=== PATIENT | male | born 1940 | race Caucasian/White ===

== ENCOUNTER 2018-11-03 06:52 | Inpatient (IN) | payer MEDICARE, MEDICAID ==
[~2018-11-03] VITALS: Ht 172.7 cm; Wt 55.9 kg
[~2018-11-03 06:52] MED LIST: BUDE10.2 INH; DOCU-28 PO; FLO0.4C PO; FLUO20CA39 PO; HYDR-4353 PO; IPRA4AER IH; OMEP20CA11 PO; SENN-25 PO; SIMV-42 PO
[2018-11-03 08:24] LABS: BASOPHILS % (AUTO) 0.2 % (0-1); EOSINOPHILS % (AUTO) 0 % (0-6); HEMATOCRIT 43.1 % (42.0-52.0); HEMOGLOBIN 14.3 g/dl (14.0-17.9); LYMPHOCYTES # (AUTO) 1.1 X10'3 (1.1-4.8); LYMPHOCYTES % (AUTO) 9.4 % (21-51); MEAN CORPUSCULAR HEMOGLOBIN 33.4 PG (27.0-31.0); MEAN CORPUSCULAR HGB CONC 33.2 g/dL (33.0-36.5); MEAN CORPUSCULAR VOLUME 100.4 FL (78-98); MEAN PLATELET VOLUME 9.5 FL (7.4-10.4); MONOCYTES # (AUTO) 0.9 X10'3 (0-0.9); MONOCYTES % (AUTO) 8.1 % (2-12); NEUTROPHILS # (AUTO) 9.6 X10'3 (1.8-7.7); NEUTROPHILS % (AUTO) 82.3 % (42-75); PLATELET COUNT 123 X10'3 (140-440); RED CELL DISTRIBUTION WIDTH 13.6 % (11.5-14.5); WHITE BLOOD COUNT 11.7 X10'3 (4.5-11.0)
[2018-11-03 09:15] LABS: ALBUMIN 3.7 G/DL (3.4-5.0); ALBUMIN/GLOBULIN RATIO 1.3 (1.1-1.5); ANION GAP 9 (8-16); ASPARTATE AMINO TRANSFERASE 542 U/L (10-37); BILIRUBIN,TOTAL 2.3 MG/DL (0.1-1.0); BLOOD UREA NITROGEN 25 MG/DL (7-18); BUN/CREATININE RATIO 30.1 (5.4-32.0); CALCIUM 9.2 MG/DL (8.5-10.1); CHLORIDE 104 MMOL/L (99-107); CREATININE 0.83 MG/DL (0.60-1.10); ETHANOL < 0.010 GM/DL (0.0-0.010); GLUCOSE 106 MG/DL (70-104); POTASSIUM 4.1 MMOL/L (3.5-5.1); SODIUM 141 MMOL/L (135-145); TOTAL CARBON DIOXIDE 28.2 MMOL/L (24-32); TOTAL PROTEIN 6.5 G/DL (6.4-8.2); eGFR 90 ML/MIN
[2018-11-03 09:26] LABS: CLARITY,URINE CLEAR (Clear); COLOR,URINE YELLOW (Yellow); GLUCOSE, URINE NEGATIVE (Neg); KETONES,URINE >=80 mg/dl (Neg); LEUKOCYTE ESTERASE ,URINE NEGATIVE (Neg); NITRITES, URINE NEGATIVE (Neg); OCCULT BLOOD,URINE TRACE-INTACT (Neg); PH,URINE 6.5 (4.8-8.0); PROTEIN,URINE TRACE mg/dl (Neg)
[2018-11-03 09:27] LABS: ALANINE AMINOTRANSFERASE 3321 U/L (12-78)
[2018-11-03 09:30] LABS: ACETAMINOPHEN < 2.0 UG/ML (10-30)
[2018-11-03 09:31] LABS: URINE AMPHETAMINE SCREEN NEGATIVE (Neg); URINE BARBITUATE SCREEN NEGATIVE (Neg); URINE BENZODIAZEPINES SCREEN NEGATIVE (Neg); URINE CANNABINOID SCREEN NEGATIVE (Neg); URINE COCAINE SCREEN NEGATIVE (Neg); URINE METHADONE SCREEN NEGATIVE (Neg); URINE OPIATE SCREEN POSITIVE (Neg); URINE PHENCYCLIDINE SCREEN NEGATIVE (Neg)
[2018-11-03 09:32] LABS: UA COLLECTION TYPE CLN CATCH MIDSTREAM
[2018-11-03 09:35] LABS: BACTERIA,URINE NONE SEEN /HPF (Neg); MUCUS STRANDS NONE SEEN /LPF (Neg); RBC,URINE NONE SEEN /HPF (0-2); SQUAMOUS EPITHELIAL CELL,UR FEW /LPF (FEW); WBC,URINE NONE SEEN /HPF (0-4)
--- NOTE | 2018-11-03 10:09 | NUR ---
PACKET FAXED TO [facility]
--- NOTE | 2018-11-03 10:27 | NUR ---
pt was brought over by shanna tejada, he was placed in bed 24 with warm blanket and fresh water
[2018-11-03 10:47] LABS: ALKALINE PHOSPHATASE 99 IU/L (46-116)
--- NOTE | 2018-11-03 12:26 | NUR ---
CONTACTED POISON CONTROL REGARDING INGESTION OF 60 HYDROCODONE LAST WEDNESDAY. SPOKE WITH LORENZO, THE RECOMENDATION IS TO START PT ON ACETYLCYSTEINE IV TREATMENT X1 DAY DUE TO PT ELEVATED LIVER ENZYMES AT THE STANDARD DOSING AND TO OBTAIN BASELINE PT INR. AFTER 3RD DOSE RECHECK PT CHEM PANEL AND PT INR.
[2018-11-03] MEDS ORDERED: WATER IV ONE ×3 (12:40→18:00)
[2018-11-03] MEDS ORDERED: DEXTROSE 5% IV ONE ×3 (12:40→18:00)
[2018-11-03] MEDS ORDERED: ACETYLCYSTEINE IV ONE ×3 (12:40→18:00)
--- NOTE | 2018-11-03 13:00 | NUR ---
PT IS IN BED WITH EX AT BEDSIDE. PT IS BEING GOOD
--- NOTE | 2018-11-03 13:41 | NUR ---
PTS EX STILL AT BEDSIDE AND PT FINISHED EATING. PT IS BEING GOOD
[2018-11-03] MEDS ORDERED: sennosides 8.6mg tablet PO PRN (13:50)
[2018-11-03] MEDS ORDERED: docusate sod 100mg capsule PO PRN (13:50)
[2018-11-03] MEDS ORDERED: diphenhydrAMINE 25mg capsule PO PRN (13:55)
[2018-11-03] MEDS ORDERED: potassium CL 10mEq/100ml bag 100 ML IV PRN ×2 (13:55)
[2018-11-03] MEDS ORDERED: magnesium 2GM in 50ml NS 50 ML IV PRN (13:55)
[2018-11-03] MEDS ORDERED: magnesium 4gm in 100ml NS 100 ML IV PRN (13:55)
[2018-11-03] MEDS ORDERED: acetaminophen 325mg tablet PO PRN (13:55)
[2018-11-03] MEDS ORDERED: magnesium hydroxide 30ml (MOM) UD suspension PO PRN (13:55)
[2018-11-03] MEDS: K and/or MAG REPLACEMENT MC SCH (13:55)
[2018-11-03] MEDS ORDERED: ondansetron/PF 4mg/2ml inj IV PRN (13:55)
[2018-11-03] MEDS ORDERED: mag hydrox/Alum hydrox/simeth 30ml oral suspension PO PRN (13:55)
[2018-11-03] MEDS ORDERED: ipratropium 0.5 MG/2.5ML nebule IH PRN (14:05)
[2018-11-03 14:30] LABS: HEMOGLOBIN A1C 5.6 % (4.5-6.2)
[2018-11-03] MEDS: normal saline 1000ml 1,000 ML IV SCH ×2 (15:00→23:23)
[2018-11-03] MEDS: albuterol 2.5 MG/3 ML nebule NEB SCH ×2 (15:00→19:57)
--- NOTE | 2018-11-03 17:15 | NUR ---
Discharge Note Patient's liver enzymes were elevated upon admission. Poison control called and recommendations made to Dr. Bethea. IV started and [place]ao antidote IV added to normal saline line. Report given to Dmitriy BENITEZ on PCU. Dmitriy RN came down to Overflow to transport patient back to PCU via wheelchair. IV's patent and running. IV site without redness or swelling.
--- NOTE | 2018-11-03 17:27 | NUR ---
Patient in room 3021, I have received report from [place] from the ER and had the opportunity to ask questions and assume patient care.
[2018-11-03 17:30] VITALS: BP 125/64
--- NOTE | 2018-11-03 18:00 | NUR ---
I have reviewed Suzanne BENITEZ (orientee) charting and I agree with it.
--- NOTE | 2018-11-03 18:25 | NUR ---
Problems reprioritized. Patient report given, questions answered & plan of care reviewed with Roberto BENITEZ.
--- NOTE | 2018-11-03 18:44 | NUR ---
Patient in room PCU 3021. I have received report from EMMANUEL Izaguirre and had the opportunity to ask questions and assume patient care. Patient is alert and oriented X3, denies CP, n/v, dizziness, SOB. Will continue to monitor
[2018-11-03 19:00] VITALS: BP 124/65
[2018-11-03] MEDS: budesonide 0.5mg/2ml UD nebule IH SCH (19:57)
[2018-11-03] MEDS: heparin, porcine 5000 units/ml vial SQ SCH (20:09)
[2018-11-03] MEDS: atorvastatin 10mg tablet PO SCH (20:09)
[2018-11-03 22:00] VITALS: BP_SYST 102; BP_SYST 118; BP_DIAS 51; BP_DIAS 68
--- NOTE | 2018-11-03 22:00 | NUR ---
Received call from Zoë in Poison Control. She asked for an update in patient, including VS, and requested to repeat the AST, ALT, and INR lab one hour prior to the last Acetadote IV 5,5590 mg IV solution, running at 63ml/hr is done. The lab result for the INR has to be < 2, and the AST and ALT has to be <1,000 at its peak and both trending down. Then, please call her at with the lab results.
[2018-11-04 02:00] VITALS: BP 136/68
[2018-11-04] MEDS: nicotine 7mg patch - 24hr TD SCH ×2 (02:01→07:23)
--- NOTE | 2018-11-04 05:35 | NUR ---
The DART was not finished during this shift. Patient is anxious and not cooperative with questionnaires. I tried again after ordering and placing nicotine patch, but patient went back to sleep.
[2018-11-04 06:00] VITALS: BP 139/62
[2018-11-04 06:15] LABS: BASOPHILS % (AUTO) 0.2 % (0-1); EOSINOPHILS % (AUTO) 0.2 % (0-6); HEMATOCRIT 37.8 % (42.0-52.0); HEMOGLOBIN 12.9 g/dl (14.0-17.9); LYMPHOCYTES # (AUTO) 1.2 X10'3 (1.1-4.8); MEAN CORPUSCULAR HEMOGLOBIN 34.5 PG (27.0-31.0); MEAN CORPUSCULAR HGB CONC 34.2 g/dL (33.0-36.5); MEAN CORPUSCULAR VOLUME 100.6 FL (78-98); MEAN PLATELET VOLUME 9.9 FL (7.4-10.4); MONOCYTES # (AUTO) 1.1 X10'3 (0-0.9); MONOCYTES % (AUTO) 13.1 % (2-12); NEUTROPHILS % (AUTO) 72.5 % (42-75); PLATELET COUNT 105 X10'3 (140-440); RED BLOOD COUNT 3.75 X10'6 (4.70-6.10); RED CELL DISTRIBUTION WIDTH 13.6 % (11.5-14.5); WHITE BLOOD COUNT 8.3 X10'3 (4.5-11.0)
--- NOTE | 2018-11-04 06:23 | NUR ---
Patient in room PCU 3021. I have received report from Roberto BENITEZ and had the opportunity to ask questions and assume patient care.
--- NOTE | 2018-11-04 06:30 | NUR ---
Problems reprioritized. Patient report given, questions answered & plan of care reviewed with EMMANUEL Izaguirre. Pt stable at shift change
[2018-11-04 06:47] LABS: ALBUMIN 3.2 G/DL (3.4-5.0); ALBUMIN/GLOBULIN RATIO 1.2 (1.1-1.5); ALKALINE PHOSPHATASE 83 IU/L (46-116); ANION GAP 10 (8-16); ASPARTATE AMINO TRANSFERASE 194 U/L (10-37); BLOOD UREA NITROGEN 13 MG/DL (7-18); BUN/CREATININE RATIO 22.4 (5.4-32.0); CALCIUM 8.4 MG/DL (8.5-10.1); CHLORIDE 105 MMOL/L (99-107); CHOL/HDL RATIO 2.4 (0.00-4.99); CHOLESTEROL 135 MG/DL (0-200); CREATININE 0.58 MG/DL (0.60-1.10); GLUCOSE 134 MG/DL (70-104); HDL CHOLESTEROL 56 MG/DL (35-60); LDL CHOLESTEROL 65 MG/DL (50-100); MAGNESIUM 1.6 MG/DL (1.5-2.4); PHOSPHORUS 1.6 MG/DL (2.3-4.5); POTASSIUM 3.1 MMOL/L (3.5-5.1); SODIUM 143 MMOL/L (135-145); TOTAL CARBON DIOXIDE 27.9 MMOL/L (24-32); TOTAL PROTEIN 5.8 G/DL (6.4-8.2); TRIGLYCERIDES 65 MG/DL (20-135); eGFR > 90 ML/MIN
[2018-11-04 06:50] LABS: ACETAMINOPHEN < 2.0 UG/ML (10-30); ALANINE AMINOTRANSFERASE 1968 U/L (12-78)
[2018-11-04] MEDS: budesonide 0.5mg/2ml UD nebule IH SCH ×2 (07:13→19:41)
[2018-11-04] MEDS: albuterol 2.5 MG/3 ML nebule NEB SCH ×4 (07:13→19:41)
[2018-11-04] MEDS: pantoprazole 40mg Tablet.DR PO SCH (07:23)
[2018-11-04] MEDS: FLUoxetine 20mg capsule PO SCH (07:23)
[2018-11-04] MEDS: heparin, porcine 5000 units/ml vial SQ SCH ×2 (07:23→20:15)
[2018-11-04] MEDS: normal saline 1000ml 1,000 ML IV SCH ×2 (07:27→17:10)
[2018-11-04] MEDS: K and/or MAG REPLACEMENT MC SCH (08:00)
--- NOTE | 2018-11-04 09:16 | NUR ---
Pt requesting that he is able to speak with case management immediately, page sent to case management per pt request.
[2018-11-04] MEDS: potassium Cl 20 mEq SR tablet PO PRN ×3 (09:59→21:56)
--- NOTE | 2018-11-04 10:09 | NUR ---
PAGER ID: [phone] MESSAGE: RE: Carlton Basilio, Room: 3021. Per Poison control protocol. INR and AST/ALT need to be rechecked 1 hour before last bag of Acetadote empty. Can I put order in to recheck INR, AST and ALT? -Dmitriy [facility] #[id number] Dr. Still paged concerning
--- NOTE | 2018-11-04 10:36 | NUR ---
Pt with low BMI for geriatric age however current documented wt is pt stated. Pt admit with SI on a 5150. No recent past weights to assess for any changes in weight. Pt currently on heart healthy diet documented with 100% PO intake x 1 meal and 50% PO intake x 1 meal. No significant decrease in muscle strength or edema. Currently pt does not meet criteria for malnutrition. Will continue to follow. Addendum: 11/04/18 at [address] Amended: Links added.
[2018-11-04 11:00] VITALS: BP 154/75
[2018-11-04 12:13] LABS: ASPARTATE AMINO TRANSFERASE 167 U/L (10-37)
[2018-11-04 12:15] LABS: ALANINE AMINOTRANSFERASE 1830 U/L (12-78)
[2018-11-04] MEDS: ACETYLCYSTEINE IV SCH (13:56)
[2018-11-04] MEDS: DEXTROSE 5% IV SCH (13:56)
[2018-11-04] MEDS: WATER IV SCH (13:56)
[2018-11-04 15:00] VITALS: BP 137/73
--- NOTE | 2018-11-04 16:42 | NUR ---
I have reviewed and agree with all medications administered and interventions performed by [facility] Student Elgin Heller Addendum: 11/04/18 at 1642 by Krista Drummond RT Amended: Links added.
--- NOTE | 2018-11-04 16:54 | NUR ---
bronchodilator not given due to rt busy with critical pt in er Addendum: 11/04/18 at 1654 by Krista Drummond RT Amended: Links added.
[2018-11-04 18:00] VITALS: BP 155/66
--- NOTE | 2018-11-04 18:10 | NUR ---
Problems reprioritized. Patient report given, questions answered & plan of care reviewed with Roberto BENITEZ.
--- NOTE | 2018-11-04 18:15 | NUR ---
Patient in room PCU 3021. I have received report from EMMANUEL Izaguirre and had the opportunity to ask questions and assume patient care. Pt denies CP, SOB, n/v, and he states that nicotine patch is helping with his nicotine cravings. Will continue to monitor
[2018-11-04] MEDS: atorvastatin 10mg tablet PO SCH (20:14)
[2018-11-04 22:00] VITALS: BP 139/56
[2018-11-05 02:00] VITALS: BP 138/57
[2018-11-05] MEDS: ACETYLCYSTEINE IV SCH (03:35)
[2018-11-05] MEDS: WATER IV SCH (03:35)
[2018-11-05] MEDS: DEXTROSE 5% IV SCH (03:35)
[2018-11-05] MEDS: normal saline 1000ml 1,000 ML IV SCH (03:52)
[2018-11-05 05:07] LABS: BASOPHILS % (AUTO) 0.3 % (0-1); EOSINOPHILS % (AUTO) 0.2 % (0-6); HEMATOCRIT 36.1 % (42.0-52.0); HEMOGLOBIN 12.5 g/dl (14.0-17.9); LYMPHOCYTES # (AUTO) 1.7 X10'3 (1.1-4.8); LYMPHOCYTES % (AUTO) 20.8 % (21-51); MEAN CORPUSCULAR HEMOGLOBIN 34.5 PG (27.0-31.0); MEAN CORPUSCULAR HGB CONC 34.5 g/dL (33.0-36.5); MEAN PLATELET VOLUME 9.5 FL (7.4-10.4); MONOCYTES # (AUTO) 1.3 X10'3 (0-0.9); MONOCYTES % (AUTO) 15.9 % (2-12); NEUTROPHILS % (AUTO) 62.8 % (42-75); PLATELET COUNT 100 X10'3 (140-440); RED BLOOD COUNT 3.61 X10'6 (4.70-6.10); RED CELL DISTRIBUTION WIDTH 13.7 % (11.5-14.5)
[2018-11-05 05:13] LABS: ALBUMIN 3.1 G/DL (3.4-5.0); ALBUMIN/GLOBULIN RATIO 1.2 (1.1-1.5); ALKALINE PHOSPHATASE 77 IU/L (46-116); ANION GAP 9 (8-16); ASPARTATE AMINO TRANSFERASE 102 U/L (10-37); BILIRUBIN,TOTAL 1.7 MG/DL (0.1-1.0); BLOOD UREA NITROGEN 6 MG/DL (7-18); BUN/CREATININE RATIO 9.7 (5.4-32.0); CALCIUM 8.6 MG/DL (8.5-10.1); CHLORIDE 107 MMOL/L (99-107); CREATININE 0.62 MG/DL (0.60-1.10); GLUCOSE 109 MG/DL (70-104); MAGNESIUM 1.3 MG/DL (1.5-2.4); PHOSPHORUS 2.4 MG/DL (2.3-4.5); SODIUM 143 MMOL/L (135-145); TOTAL CARBON DIOXIDE 27.5 MMOL/L (24-32); TOTAL PROTEIN 5.7 G/DL (6.4-8.2); eGFR > 90 ML/MIN
[2018-11-05 05:14] LABS: ALANINE AMINOTRANSFERASE 1353 U/L (12-78)
[2018-11-05 05:18] LABS: POTASSIUM 2.9 MMOL/L (3.5-5.1)
[2018-11-05] MEDS: potassium Cl 20 mEq SR tablet PO PRN ×3 (05:29→14:59)
--- NOTE | 2018-11-05 05:35 | NUR ---
I called Dr. Menjivar to report pt's potassium level (2.9). I will follow protocol K-Dur 40 MEQ X 3.
[2018-11-05 06:30] VITALS: BP 144/63
--- NOTE | 2018-11-05 06:39 | NUR ---
Problems reprioritized. Patient report given, questions answered & plan of care reviewed with EMMANUEL Samano . Patient stable at shift change
[2018-11-05 07:35] LABS: PLATELET ESTIMATE DECREASED; POIKILOCYTOSIS FEW; POLYCHROMASIA FEW
[2018-11-05] MEDS: budesonide 0.5mg/2ml UD nebule IH SCH ×2 (07:49→19:57)
[2018-11-05] MEDS: albuterol 2.5 MG/3 ML nebule NEB SCH ×4 (07:49→19:57)
[2018-11-05] MEDS: heparin, porcine 5000 units/ml vial SQ SCH ×2 (08:00→20:00)
[2018-11-05] MEDS: K and/or MAG REPLACEMENT MC SCH (08:00)
[2018-11-05] MEDS: magnesium Cl slow-release 64mg tablet PO PRN ×2 (10:03→20:31)
[2018-11-05] MEDS: pantoprazole 40mg Tablet.DR PO SCH (10:04)
[2018-11-05] MEDS: FLUoxetine 20mg capsule PO SCH (10:04)
[2018-11-05] MEDS: nicotine 7mg patch - 24hr TD SCH (10:05)
--- NOTE | 2018-11-05 10:25 | NUR ---
Malnutrition consult: Patient's nutrition status has already been addressed, see below. Pt continues with average of 75% PO intake meeting nutrient needs. Pt currently does not meet criteria for malnutrition, see below for additional details. Pt with low BMI for geriatric age however current documented wt is pt stated. Pt admit with SI on a 5150. No recent past weights to assess for any changes in weight. Pt currently on heart healthy diet documented with 100% PO intake x 1 meal and 50% PO intake x 1 meal. No significant decrease in muscle strength or edema. Currently pt does not meet criteria for malnutrition. Will continue to follow. Addendum: 11/05/18 at [address] Amended: Links added.
[2018-11-05 11:00] VITALS: BP 144/65
--- NOTE | 2018-11-05 11:05 | NUR ---
POISON CONTROL CALLED. THEY RECOMMENDED THAT THE ACETADOTE IV BE DISCONTINUED. THEY STATED THAT THE ALT LEVEL HAS ALREADY BEEN REDUCED MORE THAN HALF. NEW GUIDELINES RECOMMEND NO FURTHER NEED FOR ACETADOTE IN THIS CASE. DR BILL CONTACTED AND NEW ORDERS RECEIVED. Addendum: 11/05/18 at 1113 by Kenia Wilson RN Amended: Links added.
--- NOTE | 2018-11-05 13:15 | NUR ---
Noted platelets were 100 this AM. Spoke to MD Still who oked holding heparin.
[2018-11-05 15:00] VITALS: BP 123/65
--- NOTE | 2018-11-05 16:03 | NUR ---
Pt. ex Cecilia Basilio and son Michoacano Basilio in to visit patient. Requesting to be notified when pt. transfers. Addendum: 11/05/18 at 1604 by Jazmyne Duron RN Contact information placed in SBAR
--- NOTE | 2018-11-05 16:21 | NUR ---
Pt. states he did not eat for 8 days at home r/t low income and inability to cook with carpal tunnel in his hands. Recommended [facility] resources if pt. qualifies. Pt. states he lives out of range and that [employer] will not deliver to his area. player services representative already following this pt. and unavailable at this time of day. Will pass on to oncoming nurse to discuss this with SS in AM.
[2018-11-05 18:00] VITALS: BP 130/68
--- NOTE | 2018-11-05 19:08 | NUR ---
Problems reprioritized. Patient report given, questions answered & plan of care reviewed with Roberto BENITEZ.
--- NOTE | 2018-11-05 20:00 | NUR ---
Hold heparin scheduled at 20:00. Per day nurse, Jazmyne, hold was okay's by Dr. Still.
[2018-11-05] MEDS: atorvastatin 10mg tablet PO SCH (20:25)
[2018-11-05 22:00] VITALS: BP 153/56
[2018-11-06] MEDS: normal saline 1000ml 1,000 ML IV SCH (00:20)
[2018-11-06 06:33] LABS: BASOPHILS % (AUTO) 0.3 % (0-1); EOSINOPHILS % (AUTO) 0.3 % (0-6); HEMATOCRIT 38.5 % (42.0-52.0); HEMOGLOBIN 12.8 g/dl (14.0-17.9); LYMPHOCYTES # (AUTO) 2.2 X10'3 (1.1-4.8); LYMPHOCYTES % (AUTO) 18.9 % (21-51); MEAN CORPUSCULAR HEMOGLOBIN 33.4 PG (27.0-31.0); MEAN CORPUSCULAR HGB CONC 33.3 g/dL (33.0-36.5); MEAN CORPUSCULAR VOLUME 100.3 FL (78-98); MEAN PLATELET VOLUME 9.6 FL (7.4-10.4); MONOCYTES # (AUTO) 1.3 X10'3 (0-0.9); MONOCYTES % (AUTO) 11.2 % (2-12); NEUTROPHILS # (AUTO) 8.1 X10'3 (1.8-7.7); NEUTROPHILS % (AUTO) 69.3 % (42-75); PLATELET COUNT 118 X10'3 (140-440); RED BLOOD COUNT 3.84 X10'6 (4.70-6.10); WHITE BLOOD COUNT 11.7 X10'3 (4.5-11.0)
--- NOTE | 2018-11-06 06:33 | NUR ---
Problems reprioritized. Patient report given, questions answered & plan of care reviewed with EMMANUEL Jacobo. Patient stable at shift change
[2018-11-06 06:57] LABS: ALBUMIN 3.4 G/DL (3.4-5.0); ALBUMIN/GLOBULIN RATIO 1.3 (1.1-1.5); ALKALINE PHOSPHATASE 86 IU/L (46-116); ANION GAP 8 (8-16); ASPARTATE AMINO TRANSFERASE 72 U/L (10-37); BILIRUBIN,TOTAL 1.7 MG/DL (0.1-1.0); BLOOD UREA NITROGEN 7 MG/DL (7-18); BUN/CREATININE RATIO 11.7 (5.4-32.0); CALCIUM 8.8 MG/DL (8.5-10.1); CHLORIDE 108 MMOL/L (99-107); GLUCOSE 87 MG/DL (70-104); MAGNESIUM 1.2 MG/DL (1.5-2.4); PHOSPHORUS 2.7 MG/DL (2.3-4.5); SODIUM 143 MMOL/L (135-145); TOTAL CARBON DIOXIDE 26.7 MMOL/L (24-32); TOTAL PROTEIN 6.1 G/DL (6.4-8.2); eGFR > 90 ML/MIN
[2018-11-06] MEDS: budesonide 0.5mg/2ml UD nebule IH SCH (06:58)
[2018-11-06] MEDS: albuterol 2.5 MG/3 ML nebule NEB SCH ×3 (06:58→15:16)
[2018-11-06 07:00] VITALS: BP 155/72
[2018-11-06 07:00] LABS: ALANINE AMINOTRANSFERASE 1066 U/L (12-78)
[2018-11-06] MEDS: K and/or MAG REPLACEMENT MC SCH (08:00)
[2018-11-06] MEDS: nicotine 7mg patch - 24hr TD SCH (08:00)
[2018-11-06] MEDS: FLUoxetine 20mg capsule PO SCH (09:40)
[2018-11-06] MEDS: pantoprazole 40mg Tablet.DR PO SCH (09:43)
[2018-11-06] MEDS: heparin, porcine 5000 units/ml vial SQ SCH (09:44)
[2018-11-06 11:00] VITALS: BP 145/64
--- NOTE | 2018-11-06 14:45 | NUR ---
Patient stable for transfer to ED overflow per hospitalist and mental health MD. All discharge education and information reviewed with patient before signing necessary paperwork. IV discontinued with catheter in tact, media monitor removed, all patient belongings packed up, and patient wheeled to ED overflow by PCT.
== END 2018-11-06 15:38 | disposition home or self-care (01) | DRG 918 ==
LOC: ER 06:53 → PCU 3S 17:34
PROVIDERS: ADMIT Family Medicine; ATTEND Family Medicine
PROC: 0HQEXZZ Repair Left Lower Arm Skin, External Approach (ICD-10-PCS; principal; 2018-11-03)
DX: T39.1X2A Poisoning by 4-Aminophenol derivatives, intentional self-harm, initial encounter (principal); S61.512A Laceration without foreign body of left wrist, initial encounter; X78.9XXA Intentional self-harm by unspecified sharp object, initial encounter; M19.90 Unspecified osteoarthritis, unspecified site; F32.9 Major depressive disorder, single episode, unspecified; E78.5 Hyperlipidemia, unspecified; Y92.89 Other specified places as the place of occurrence of the external cause; J44.9 Chronic obstructive pulmonary disease, unspecified; K21.9 Gastro-esophageal reflux disease without esophagitis; Z87.891 Personal history of nicotine dependence; Z88.8 Allergy status to other drugs, medicaments and biological substances
CPT/HCPCS: 12001; 36415; 71045; 80053; 80061; 80305; 80320; 80329; 81001; 83036; 83735; 84100; 84132; 84443; 84450; 84460; 85025; 85610; 87081; 93005; 94640; 94760; 96365; 96366; 99284; 99285; G0378; J0132; J1644; J7030; J7060; J7070; J7626

== ENCOUNTER 2018-11-06 15:43 | Emergency (ER) | payer MEDICARE, MEDICAID ==
[~2018-11-06] VITALS: Ht 172.7 cm; Wt 55.9 kg
[~2018-11-06 15:43] MED LIST changes: -FLO0.4C PO; -SIMV-42 PO; +SIMV20TA5 PO
[2018-11-06] MEDS ORDERED: loperamide 2mg capsule PO ONE (16:35)
[2018-11-06] MEDS ORDERED: docusate sod 100mg capsule PO PRN (16:40)
[2018-11-06] MEDS ORDERED: sennosides 8.6mg tablet PO PRN (16:40)
[2018-11-06 17:23] LABS: URINE AMPHETAMINE SCREEN NEGATIVE (Neg); URINE BARBITUATE SCREEN NEGATIVE (Neg); URINE BENZODIAZEPINES SCREEN NEGATIVE (Neg); URINE CANNABINOID SCREEN NEGATIVE (Neg); URINE COCAINE SCREEN NEGATIVE (Neg); URINE METHADONE SCREEN NEGATIVE (Neg); URINE OPIATE SCREEN NEGATIVE (Neg); URINE PHENCYCLIDINE SCREEN NEGATIVE (Neg)
--- NOTE | 2018-11-06 17:30 | NUR ---
Patient awake and alert. 1:1 with RN. Patient denies suicidal ideation and states that was the stupidest thing he ever did. Patient's family is working on a place to stay for patient. Patient might have to go back to his old home until they find placement. Continue to monitor.
[2018-11-06 18:20] LABS: BASOPHILS % (AUTO) 0.2 % (0-1); EOSINOPHILS # (AUTO) 0.1 X10'3 (0-0.9); EOSINOPHILS % (AUTO) 0.5 % (0-6); HEMATOCRIT 38.2 % (42.0-52.0); HEMOGLOBIN 12.7 g/dl (14.0-17.9); LYMPHOCYTES # (AUTO) 1.9 X10'3 (1.1-4.8); LYMPHOCYTES % (AUTO) 16.3 % (21-51); MEAN CORPUSCULAR HEMOGLOBIN 33.3 PG (27.0-31.0); MEAN CORPUSCULAR HGB CONC 33.3 g/dL (33.0-36.5); MEAN CORPUSCULAR VOLUME 99.7 FL (78-98); MEAN PLATELET VOLUME 9.6 FL (7.4-10.4); MONOCYTES # (AUTO) 1.4 X10'3 (0-0.9); MONOCYTES % (AUTO) 11.8 % (2-12); NEUTROPHILS # (AUTO) 8.5 X10'3 (1.8-7.7); NEUTROPHILS % (AUTO) 71.2 % (42-75); PLATELET COUNT 129 X10'3 (140-440); RED BLOOD COUNT 3.83 X10'6 (4.70-6.10); RED CELL DISTRIBUTION WIDTH 13.5 % (11.5-14.5); WHITE BLOOD COUNT 11.9 X10'3 (4.5-11.0)
[2018-11-06 18:34] LABS: ALANINE AMINOTRANSFERASE 910 U/L (12-78); ALBUMIN 3.4 G/DL (3.4-5.0); ALBUMIN/GLOBULIN RATIO 1.3 (1.1-1.5); ALKALINE PHOSPHATASE 88 IU/L (46-116); ANION GAP 8 (8-16); ASPARTATE AMINO TRANSFERASE 60 U/L (10-37); BILIRUBIN,TOTAL 1.1 MG/DL (0.1-1.0); BLOOD UREA NITROGEN 12 MG/DL (7-18); BUN/CREATININE RATIO 15.6 (5.4-32.0); CALCIUM 8.9 MG/DL (8.5-10.1); CHLORIDE 106 MMOL/L (99-107); CREATININE 0.77 MG/DL (0.60-1.10); ETHANOL < 0.010 GM/DL (0.0-0.010); GLUCOSE 110 MG/DL (70-104); POTASSIUM 3.6 MMOL/L (3.5-5.1); SODIUM 142 MMOL/L (135-145); TOTAL CARBON DIOXIDE 28.4 MMOL/L (24-32); TOTAL PROTEIN 6.1 G/DL (6.4-8.2); eGFR > 90 ML/MIN
--- NOTE | 2018-11-06 18:39 | NUR ---
Assumed care of patient from EMMANUEL Benz. The patient is awake and sitting on the side of his bed eating dinner. He is being calm and cooperative.
[2018-11-06] MEDS ORDERED: budesonide 0.5mg/2ml UD nebule IH SCH (20:00)
--- NOTE | 2018-11-06 20:01 | NUR ---
The patient is sleeping on his left side. Breathing is unlabored. No s/s of distress.
[2018-11-06 20:49] LABS: CLARITY,URINE CLEAR (Clear); COLOR,URINE YELLOW (Yellow); GLUCOSE, URINE NEGATIVE (Neg); KETONES,URINE NEGATIVE (Neg); LEUKOCYTE ESTERASE ,URINE NEGATIVE (Neg); NITRITES, URINE NEGATIVE (Neg); OCCULT BLOOD,URINE TRACE-INTACT (Neg); PROTEIN,URINE NEGATIVE (Neg)
[2018-11-06 20:51] LABS: UA COLLECTION TYPE CLN CATCH MIDSTREAM
--- NOTE | 2018-11-06 20:52 | NUR ---
Pt up to bathroom to perform evening toilet. No assistance required.
[2018-11-06 20:56] LABS: BACTERIA,URINE NONE SEEN /HPF (Neg); MUCUS STRANDS FEW /LPF (Neg); RBC,URINE 0-2 /HPF (0-2); SQUAMOUS EPITHELIAL CELL,UR NONE SEEN /LPF (FEW); WBC,URINE 0-4 /HPF (0-4)
[2018-11-06] MEDS ORDERED: ipratropium/albuterol 3ml nebule IH SCH (21:00)
[2018-11-06] MEDS: ipratropium/albuterol 3ml nebule IH SCH (21:03)
--- NOTE | 2018-11-06 21:36 | NUR ---
The patient is sleeping on his back with covers up his chin. Breathing is unlabored. There are no s/s of distress.
--- NOTE | 2018-11-06 21:51 | NUR ---
Packet faxed to [facility]. Confirmed receipt of packet with Almita @ [facility] [place] office.
--- NOTE | 2018-11-06 21:58 | NUR ---
Pt's nicotine patch removed as per RN directions. Patch disposed of in appropriate container in med room.
--- NOTE | 2018-11-06 23:07 | NUR ---
The patient is laying in supine position with his eyes open. He is just sitting looking at nurses station.
--- NOTE | 2018-11-07 00:32 | NUR ---
The patient is up to the bathroom. denies needs.
[2018-11-07] MEDS: ipratropium/albuterol 3ml nebule IH SCH (02:28)
--- NOTE | 2018-11-07 02:33 | NUR ---
The patient is awake with respiratory at bedside.
--- NOTE | 2018-11-07 04:23 | NUR ---
The patient continues to sleep with no s/s of distress.
[2018-11-07 05:30] VITALS: BP 117/80
--- NOTE | 2018-11-07 07:00 | NUR ---
PT RESTING IN BED. NO CONCERNS AT THIS TIME.
[2018-11-07] MEDS ORDERED: pantoprazole 40mg Tablet.DR PO SCH (07:30)
[2018-11-07] MEDS ORDERED: FLUoxetine 20mg capsule PO SCH (08:00)
[2018-11-07] MEDS ORDERED: budesonide 0.5mg/2ml UD nebule IH SCH (08:00)
--- NOTE | 2018-11-07 08:00 | NUR ---
PT AWAKE AND EATING BREAKFAST
--- NOTE | 2018-11-07 09:00 | NUR ---
PT UP TO BRUSH UP HIS TEETH
--- NOTE | 2018-11-07 10:00 | NUR ---
PT IS AWAKE AND RESTING IN BED
[2018-11-07] MEDS ORDERED: nicotine 14mg patch - 24hr TD SCH (11:00)
--- NOTE | 2018-11-07 11:00 | NUR ---
PT AWAKE AND INTERACTING WITH STAFF
--- NOTE | 2018-11-07 12:00 | NUR ---
PT TALKING WITH [facility]
== END 2018-11-07 15:46 | disposition home or self-care (01) ==
LOC: ER 15:44
DX: S61.512A Laceration without foreign body of left wrist, initial encounter (principal); F32.9 Major depressive disorder, single episode, unspecified; R45.851 Suicidal ideations; M19.90 Unspecified osteoarthritis, unspecified site; F17.200 Nicotine dependence, unspecified, uncomplicated; R06.02 Shortness of breath; Z79.899 Other long term (current) drug therapy; X78.9XXA Intentional self-harm by unspecified sharp object, initial encounter; Y93.89 Activity, other specified; Y92.89 Other specified places as the place of occurrence of the external cause; Y99.9 Unspecified external cause status
CPT/HCPCS: 36415; 80053; 80305; 80320; 81001; 85025; 94640; 94760; 99284; J7626

== ENCOUNTER 2018-12-29 11:01 | Emergency (ER) | payer MEDICARE, MEDICAID ==
[~2018-12-29] VITALS: Ht 172.7 cm; Wt 51.8 kg
[~2018-12-29 11:01] MED LIST changes: -HYDR-4353 PO; -SIMV20TA5 PO
[2018-12-29 11:12] VITALS: BP 131/101
[2018-12-29] MEDS ORDERED: polyethylene glycol 3350 17gm powd pack PO STA (12:39)
[2018-12-29] MEDS ORDERED: POLY17PO10 PO (13:23)
[2018-12-29] MEDS ORDERED: DOCU-148 PO (13:23)
[2019-01-02 11:13] LABS: OCCULT BLOOD STOOL NEGATIVE (Neg)
== END 2018-12-29 13:45 | disposition home or self-care (01) ==
LOC: ER 11:01
DX: K59.00 Constipation, unspecified (principal); M19.90 Unspecified osteoarthritis, unspecified site; F32.9 Major depressive disorder, single episode, unspecified; Z60.2 Problems related to living alone; Z88.8 Allergy status to other drugs, medicaments and biological substances; Z79.899 Other long term (current) drug therapy
CPT/HCPCS: 82272; 99282; 99284